=== PATIENT | male | born 1995 | race African-American/Black ===

== ENCOUNTER 2021-08-21 09:53 | Emergency (ER) | payer OTHER ==
[~2021-08-21] VITALS: Ht 177.8 cm; Wt 52.0 kg
[2021-08-21 10:08] VITALS: BP 119/77
== END 2021-08-21 12:47 | disposition left against medical advice (07) ==
LOC: ER 09:53
DX: R53.1 Weakness (principal); R20.0 Anesthesia of skin
CPT/HCPCS: 99281